=== PATIENT | female | born 1935 | race Caucasian/White ===

== ENCOUNTER 2017-04-18 13:16 | Emergency (ER) | payer OTHER ==
[~2017-04-18] VITALS: Ht 165.1 cm; Wt 60.7 kg
[2017-04-18 13:24] VITALS: TEMP 36.3; Ht 165.1 cm; Wt 60.7 kg
[2017-04-18] MEDS ORDERED: XYLOCAINE 1%/SOD BICARB 20 ML VIAL INFIL ONE (13:45)
--- NOTE | 2017-04-18 14:11 | DIAGNOSTIC IMAGING REPORT ---
CT OF THE HEAD WITHOUT CONTRAST CLINICAL HISTORY: Headache following fall. COMPARISON STUDY: No previous studies for comparison. TECHNIQUE: Helical axial images of the head were obtained without IV contrast. Automated exposure control was utilized for the study. A dose lowering technique was utilized adhering to the principles of ALARA. FINDINGS: No acute intracranial hemorrhage, midline shift or mass effect is present. Ventricular system is unremarkable for age. White matter hypodensity suggests small vessel disease. 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 Prominence of the extra-axial CSF spaces is due to atrophy. There is no calvarial fracture. Facial bones are better depicted on the maxillofacial CT. IMPRESSION: 1. No acute intracranial findings. 2. No calvarial fracture. Electronically signed by: Maury Orozco M.D. 04/18/2017 2:09 PM Dictated Date/Time: 04/18/2017 2:07 PM
--- NOTE | 2017-04-18 14:16 | DIAGNOSTIC IMAGING REPORT ---
MAXILLOFACIAL CT WITHOUT CONTRAST CLINICAL HISTORY: Nasal and maxillary pain following fall. COMPARISON STUDY: None. TECHNIQUE: A maxillofacial CT was performed without IV contrast. Coronal and sagittal reformats were viewed. A dose lowering technique was utilized adhering to the principles of ALARA. FINDINGS: Note is made of an acute mildly displaced depressed left nasal bone fracture. There is associated soft tissue gas and soft tissue swelling. There is an acute nondisplaced right nasal bone fracture. There may be a nondisplaced fracture which extends to the anterior aspect of the nasal septum. No additional facial fractures are present. The globes are intact. There is no retrobulbar hematoma. Alignment of the temporomandibular joints is anatomic. The orbital floors are intact. IMPRESSION: 1. Acute mildly displaced depressed left nasal bone fracture. Acute nondisplaced right nasal bone fracture. 2. Possible acute nondisplaced anterior nasal septal fracture. Electronically signed by: Maury Orozco M.D. 04/18/2017 2:14 PM Dictated Date/Time: 04/18/2017 2:10 PM
--- NOTE | 2017-04-18 14:43 | EMERGENCY ROOM VISIT NOTE ---
ED Visit Note First contact with patient: 13:27 I have seen and examined this patient with Owen Robbins and generally agree with the treatment plan as discussed. Vital Signs Date Time Temp Pulse Resp B/P (MAP) Pulse Ox O2 Delivery O2 Flow Rate FiO2 04/18/17 13:24 36.3 71 16 150/86 96 Room Air Departure Information Referrals Dre Miller M.D. (PCP) Patient Instructions My [facility]
[2017-04-18 15:00] VITALS: BP 163/71; PULSE 60; O2SAT 98
[2017-04-18] MEDS ORDERED: AMOX500C3 PO (15:05)
[2017-04-18] MEDS ORDERED: PANT40TA PO (15:08)
[2017-04-18] MEDS ORDERED: ALPR-411 PO (15:08)
[2017-04-18] MEDS ORDERED: CLR10 PO (15:08)
--- NOTE | 2017-04-18 15:32 | EMERGENCY ROOM VISIT NOTE ---
ED Visit Note First contact with patient: 13:27 Chief complaint: Fall with facial laceration HPI: This 82-year-old white female presents for evaluation of a laceration on her upper lip and nasal bridge. 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 She landed on her face. There was no loss of consciousness. Bleeding was controlled with pressure. She denies any nausea, vomiting, or dental pain. She does have a mild headache. No other complaints. Tetanus is believed to be up-to-date. Pain is 5/10. Her children accompany her today. No change in vision or hearing. Supplemental sheet was reviewed and signed. Previous surgeries: None Medical history: Significant for osteoarthritis, anxiety, GERD, and abdominal aneurysm Current Medications: Advil, Xanax, Protonix Allergies: NKDA Tetanus: Unknown Family History: Significant for diabetes. Parents are . Social History: Retired. Lives by herself. Positive daily tobacco use, no EtOH use. REVIEW OF SYSTEM: HEENT: No dizziness, visual problems, hearing loss, or tinnitus. There is no difficulty swallowing and no oral lesions are present. PULMONARY: No cough, shortness of breath, sputum production or hemoptysis. CARDIOVASCULAR: No chest pain, palpitations, shortness of breath or peripheral edema. GASTROINTESTINAL: No diarrhea, constipation, nausea, vomiting, or abdominal pain. GENITOURINARY: No dysuria, frequency, urgency or nocturia. NEUROLOGIC: No weakness, muscle tenderness, epilepsy or history of neurological problems. MUSCULOSKELETAL: No history of joint tenderness/swelling. Positive history of arthritis and arthralgias. SKIN: No rashes or lesions. PSYCHIATRIC: No history of depression or mental illness. ENDOCRINE: No history of diabetes, thyroid disorders, or abnormal hair growth. Physical Exam: Vitals: Afebrile. Reviewed and filed in patient's chart. Mildly hypertensive. This is likely situational. General: Well-developed, well-nourished, elderly white female, in no acute distress. Obvious discomfort. She is sitting on the bed. Alert and oriented. Skin: Warm and dry with fair turgor. No rashes. No ecchymosis or erythema. The patient is not diaphoretic. She has a large abrasion over the nasal bridge. There is also some full-thickness skin tearing. She has a nearly full thickness excoriation present over the left upper lip. No foreign material is visible. It measures approximately 1 cm in length. Significant edema present at the nasal bridge. Superficial abrasions present over the dorsal left hand. These do not require closure. HEENT: Normocephalic. Eyes PERRLA, EOMI. No conjunctiva or scleral injection. Ears TMs intact bilaterally with good light reflexes. No erythema or bulging. No hemotympanum. Canals are patent. Nares patent bilaterally without turbinate enlargement. Epistaxis is currently controlled. Oropharynx without erythema or exudate. Uvula midline, oral mucosa moist. No lesions present. Teeth line up well. No loose teeth by palpation. No pain with palpation of the maxilla or upper gumline. Musculoskeletal: Intact range of motion of her neck, shoulders, elbows, and wrists. Neurologic: Gross sensation is intact across the face and upper extremities by soft touch. CT scan imaging of the head and face obtained today was read by radiology as negative for intracranial bleed and positive for nasal bridge fracture. Also questionable septal fracture. Impression: 1 cm left upper lip laceration. 1 cm nasal laceration. Open Nasal fracture. Fall. Procedure: Informed oral consent was obtained for repair. Upper lip and nasal bridge were prepped with Betadine and draped with a sterile towel. Area was anesthetized using 7 mL 1% plain buffered lidocaine in a direct infiltration. Thorough inspection was performed. Nasal bridge has a small flap that allows visualization of the bone. Wounds were irrigated using normal sterile saline and sterile gauze. Wounds was closed using 5-0 nylon. Excellent wound edge approximation was achieved for the lip laceration and good wound edge approximation for the nasal bridge. Hemostasis was achieved. Plan: Patient was educated regarding today's findings. Conservative care measures were discussed. Cleanse the wounds daily with soap and water and reapply a small amount of bacitracin. Ice and elevate intermittently as needed for discomfort. Tylenol and ibuprofen every 6 hours as needed for pain. Wound care handout was provided. Sutures out in 8 days. She may shower. Avoid soaking or swimming for two weeks. Return to the ER for any acute changes or signs of infection. Prescription was provided for amoxicillin 500 mg 3 times a day 10 days due to the laceration over the nasal fracture. She may follow-up with ENT for realignment surgery if her nose appears crooked once the swelling has resolved. Patient was seen in conjunction with Dr. Riggs, who also evaluated the patient and concurred with today's diagnosis and treatment plan. Possibility of intracranial bleed, additional facial fracture, dental injury, and cervical spine injury were also considered. Current/Historical Medications Scheduled Amoxicillin (Amoxil), 500 MG PO TID Loratadine (Claritin), 10 MG PO DAILY Pantoprazole (Protonix), 40 MG PO DAILY Scheduled PRN Alprazolam (Xanax), 0.5 MG PO TID PRN for Anxiety Allergies Coded Allergies: No Known Allergies (Unverified , 04/18/17) Vital Signs Date Time Temp Pulse Resp B/P (MAP) Pulse Ox O2 Delivery O2 Flow Rate FiO2 04/18/17 15:00 60 18 163/71 98 Room Air 04/18/17 13:24 36.3 71 16 150/86 96 Room Air Departure Information Prescriptions Amoxicillin (AMOXIL) 500 Mg Cap 500 MG PO TID, #10 CAP Prov: Galdino Arboleda,P.A. 04/18/17 Referrals No Doctor, Assigned (PCP) Patient Instructions My [facility]
== END 2017-04-18 15:20 | disposition home or self-care (01) ==
LOC: C.EDB 13:20 → C.EDD 15:20
DX: S01.511A Laceration without foreign body of lip, initial encounter (principal); S02.2XXB Fracture of nasal bones, initial encounter for open fracture; W01.198A Fall on same level from slipping, tripping and stumbling with subsequent striking against other object, initial encounter; Y93.89 Activity, other specified; Y99.8 Other external cause status; M19.90 Unspecified osteoarthritis, unspecified site; F41.9 Anxiety disorder, unspecified; K21.9 Gastro-esophageal reflux disease without esophagitis; Z72.0 Tobacco use; Z83.3 Family history of diabetes mellitus; Z79.899 Other long term (current) drug therapy